=== PATIENT | male | born 1970 | race Caucasian/White ===

== ENCOUNTER 2016-04-12 16:17 | Emergency (ER) | payer SELFPAY ==
--- NOTE | 2016-04-12 16:48 | RAD ---
EXAMINATION:WRIST- LEFT 3 VIEWS CLINICAL INDICATION: Left wrist pain from fall 5 days ago. Initial encounter. Comparison: None FINDINGS: There is a vertical minimally displaced fracture of the ulnar aspect of the distal radius. Fracture may be incomplete as the inferior fracture plane is not well delineated. The radiocarpal and intercarpal joint space relationships of the left wrist are maintained. Mild soft tissue swelling is noted. IMPRESSION: Minimally displaced vertical fracture of ulnar aspect distal left radius.
== END 2016-04-12 17:33 | disposition home or self-care (01) ==
LOC: ED 16:17
DX: S62.102A Fracture of unspecified carpal bone, left wrist, initial encounter for closed fracture (principal); W00.0XXA Fall on same level due to ice and snow, initial encounter; Y92.9 Unspecified place or not applicable